=== PATIENT | female | born 1970 | race Caucasian/White ===

== ENCOUNTER 2020-08-25 16:26 | Outpatient (REF) | payer MEDICAID, SELFPAY | END 2020-08-25 16:27 | disposition home or self-care (01) | LOC: HO.LAB 16:26 | PROVIDERS: PCP Family Medicine; Visit Provider Internal Medicine | DX: Z20.828 Contact with and (suspected) exposure to other viral communicable diseases (principal) | CPT/HCPCS: C9803; U0003 ==

== ENCOUNTER 2022-04-02 22:08 | Emergency (ER) | payer MEDICAID, SELFPAY ==
--- NOTE | 2022-04-02 | ECG_ITS ---
Test Reason : cp Blood Pressure : / mmHG Vent. Rate : 077 BPM Atrial Rate : 077 BPM P-R Int : 180 ms QRS Dur : 078 ms QT Int : 388 ms P-R-T Axes : 075 089 062 degrees QTc Int : 439 ms Normal sinus rhythm Normal ECG When compared with ECG of 16-JUL-2017 00:54, No significant change was found Referred By: Generic ED Physician Electronically Signed By:Anderson Cordoba
[2022-04-02 23:07] VITALS: BP 146/81; PULSE 75; RESP 18; TEMP 36.9; O2SAT 98; BMI 24.5
[2022-04-02 23:12] LABS: MANUAL DIFF FLAG NO
[2022-04-02 23:13] LABS: Basophils Percent Auto 0.4 % (0-2); Eosinophils Absolute Auto 0.2 X10*3/uL (0.0-0.4); Eosinophils Percent Auto 2.7 % (0-4); Hematocrit 37.1 % (37.0-47.0); Hemoglobin 12.4 g/dl (12.0-16.0); Imm Gran Abs Auto 0.01 X10*3/uL (0.00-0.03); Imm Gran Pct Auto 0.1 % (0.0-0.4); Lymphocytes Absolute Auto 3.1 X10*3/uL (1.2-4.9); Lymphocytes Percent Auto 38.7 % (20-40); Mean Corpuscular HGB Conc 33.4 g/dl (31.0-35.0); Mean Corpuscular Hemoglobin 30.5 pg (27.0-33.0); Mean Corpuscular Volume 91.4 fL (80.0-98.0); Monocytes Absolute Auto 0.8 X10*3/uL (0.1-1.2); Monocytes Percent Auto 9.4 % (2-11); Neutrophils Absolute Auto 3.9 x10*3/uL (2.0-8.3); Neutrophils Percent Auto 48.7 % (45-73); Platelet Count 234 X10*3/uL (160-400); Red Blood Count 4.06 X10*6/uL (4.20-5.50); Red Cell Distribution Width 13.3 % (11.0-16.0); White Blood Count 8.1 X10*3/uL (4.8-10.8)
[2022-04-02 23:26] LABS: Alanine Aminotransferase 17 U/L (0-31); Albumin Level 4.3 g/dL (3.5-5.0); Alkaline Phosphatase 87 U/L (39-117); Anion Gap 10 (12-20); Aspartate Amino Transferase 17 U/L (5-31); Bilirubin Total 0.4 mg/dL (0.0-1.0); Blood Urea Nitrogen 18 mg/dL (9-16); Calcium 8.9 mg/dL (8.4-10.2); Carbon Dioxide 29 mmol/L (22-29); Chloride 106 mmol/L (96-108); Creatinine Clr Calc Pharmacy 67.7; Estimated Glomerular Filt Rate > 60; Glucose Random 104 mg/dL (60-115); Potassium 4.3 mmol/L (3.3-5.1); Sodium 141 mmol/L (135-145); Total Protein 6.7 g/dL (6.5-8.0)
[2022-04-02 23:32] LABS: Troponin-I High Sensitivity < 3.5 ng/L (<3.5-17.0)
[2022-04-03 01:27] VITALS: BP 130/77; PULSE 60; RESP 16; O2SAT 99
--- NOTE | 2022-04-03 01:44 | ED.CHESTPAIN ---
HPI - Chest Pain General Chief Complaint: Chest Pain Stated Complaint: Chest Pain, heart problems sent by pcp Time Seen by Provider: 04/03/22 01:44 Source: patient Mode of arrival: ambulatory Limitations: no limitations History of Present Illness HPI narrative: Patient had chest pain and left arm and shoulder pain. Started Saturday with chest tightness. Patient had arm numbness. She also feels a headache. Patient suffered from chest pain a year ago, she had a monitor and nothing major was found. Patient suffers from anxiety, felt hyper and stressed today. Patient has not worked secondary to having COVID, and going through a relationship break up. Then later tonight she felt like she could not concentrate. complaint: chest pain Onset (ago): day(s) Timing of current episode: episodic Pain location: substernal Pain radiation: left arm Quality: tightness Risk Factors Coronary artery disease risk factors: none Related Data Allergies Allergy/AdvReac Type Severity Reaction Status Date / Time gabapentin [GABAPENTIN] Allergy Unknown UNKNOWN Unverified 07/10/20 19:48 No Known Allergies Allergy Unknown Unverified 07/07/20 17:24 [No Known Allergies*] dogs, camels, horses, molds, Allergy Unknown Uncoded 05/24/20 00:00 g Review of Systems Constitutional: Constitutional: Reports no additional constitutional complaints Eyes: Eyes: Reports no additional eye complaints ENT: Denies dizziness Cardiovascular: Cardiovascular: Reports no additional cardiovascular complaints Respiratory: Respiratory: Reports as per HPI Gastrointestinal: Gastrointestinal: Reports no additional gastrointestinal complaints Genitourinary: Genitourinary: Reports no additional female genitourinary complaints Musculoskeletal: Musculoskeletal: Reports no additional musculoskeletal complaints Integumentary/Breasts: Skin/Breast: Denies rash Neurologic: Reports system reviewed and no additional complaints, except as documented, Denies dizziness and Denies Sensory deficit (Neuro) Psychiatric: Psychiatric: Denies anxiety PMFSH Social History Social History Advance Directives: No Advance Directives Information Provided: Yes Physical Exam Vital Signs: Vital Signs: Last Vital Signs Temp 98.4 F 04/02/22 23:07 Pulse 60 04/03/22 01:27 Resp 16 04/03/22 01:27 BP 130/77 04/03/22 01:27 Pulse Ox 99 04/03/22 01:27 O2 Del Method 04/03/22 01:27 BMI result Body Mass Index 24.5 Const: General: healthy appearing Nutritional Appearance: average body habitus Orientation/consciousness: oriented to person and patient oriented x3 Limitations: no limitations HEENT: Head: Yes normal to inspection Ears: external ears normal General nose exam: Normal external nose present Mouth: Normal oral and palatal mucosa present and oropharynx normal Throat: Yes posterior oropharynx normal Eyes: General: appearance normal, both eyes and all related structures Neck: Other: supple Neck: Yes normal visual inspection Chest: Chest palpation & inspection: normal inspection of the chest Resp: Auscultation: clear to auscultation bilaterally Cardio: Jugular venous distension: no JVD Rate: regular rate Rhythm: regular rhythm Heart sounds: S1 normal heart sound present and S2 normal heart sound present GI: Inspection: Yes normal to inspection Palpation (GI): Soft to palpation, nontender and No hepatosplenomegaly present Auscultation: normal bowel sounds : General: Yes no CVA tenderness Back/Spine/Pelvis: Back: no CVA tenderness Skin: General skin exam: no rashes or lesions noted Neuro: General: oriented to person and patient oriented x3 Cranial nerves: Yes CN's II-XII intact bilaterally Motor exam (neuro): 5/5 motor strength present throughout Sensory Exam: No Sensory deficit (Neuro) Extrem: General: Yes normal to inspection Psych: Other: pressured speech Course Reevaluation(s) Reevaluation #1: Patient with a history of chest pain which she has had in the past, she seems particularly anxious. EKG and troponin are negative, physical exam normal. impression is non cardiac chest pain Time: 01:57 [facility] - Chest Pain Lab Data Result diagrams: 04/02/22 23:05 04/02/22 23:05 Labs: Lab Results 04/02/22 04/02/22 04/02/22 Range/Units 23:05 23:05 23:05 WBC 8.1 (4.8-10.8) X10*3/uL RBC 4.06 L (4.20-5.50) X10*6/uL Hgb 12.4 (12.0-16.0) g/dl Hct 37.1 (37.0-47.0) % MCV 91.4 (80.0-98.0) fL MCH 30.5 (27.0-33.0) pg MCHC 33.4 (31.0-35.0) g/dl RDW 13.3 (11.0-16.0) % Plt Count 234 (160-400) X10*3/uL MPV 10.0 (9.4-12.3) fL Immature Gran % (Auto) 0.1 (0.0-0.4) % Neut % (Auto) 48.7 (45-73) % Lymph % (Auto) 38.7 (20-40) % [place] % (Auto) 9.4 (2-11) % Eos % (Auto) 2.7 (0-4) % Baso % (Auto) 0.4 (0-2) % Lymph # (Auto) 3.1 (1.2-4.9) X10*3/uL [place] # (Auto) 0.8 (0.1-1.2) X10*3/uL Eos # (Auto) 0.2 (0.0-0.4) X10*3/uL Baso # (Auto) 0.0 (0.0-0.2) X10*3/uL Abs Immat Gran (auto) 0.01 (0.00-0.03) X10*3/uL Absolute Neuts (auto) 3.9 (2.0-8.3) x10*3/uL Absolute Nucleated RBC 0.000 (0.0-0.012) X10*3/uL Nucleated RBC % (auto) 0.0 (0.0-0.2) /100WBC Sodium 141 (135-145) mmol/L Potassium 4.3 (3.3-5.1) mmol/L Chloride 106 (96-108) mmol/L Carbon Dioxide 29 (22-29) mmol/L Anion Gap 10 L (12-20) BUN 18 H (9-16) mg/dL Creatinine 0.81 (0.5-1.4) mg/dL Estim Creat Clear Calc 67.7 Estimated GFR > 60 Random Glucose 104 (60-115) mg/dL Calcium 8.9 (8.4-10.2) mg/dL Total Bilirubin 0.4 (0.0-1.0) mg/dL AST 17 (5-31) U/L ALT 17 (0-31) U/L Alkaline Phosphatase 87 (39-117) U/L Troponin I High Sens < 3.5 (<3.5-17.0) ng/L Total Protein 6.7 (6.5-8.0) g/dL Albumin 4.3 (3.5-5.0) g/dL ECG Data ECG #1: Attestation: I personally reviewed and interpreted this ECG as follows: Interpretation: normal sinus rate of 75, no st or twave changes Discharge Plan Discharge Clinical Impression: Atypical chest pain Patient Disposition: Home, Self-Care Instructions: Chest Pain (ED) Referrals: Physician,Unknown J [Primary Care Provider] - 1 week
[2022-04-03 02:16] VITALS: BP 142/90; PULSE 75; RESP 16; O2SAT 100
== END 2022-04-03 02:40 | disposition home or self-care (01) ==
PROVIDERS: Emergency Provider Emergency Medicine
DX: R07.89 Other chest pain (principal); R51.9 Headache, unspecified; F41.9 Anxiety disorder, unspecified
CPT/HCPCS: 36415; 80053; 84484; 85025; 93005; 99283

== ENCOUNTER 2022-12-12 07:43 | Emergency (ER) | payer MEDICAID, SELFPAY ==
--- NOTE | ~2022-12-12 | XR_ITS ---
EXAMINATION: XR CHEST CLINICAL INFORMATION: Chest pain COMPARISON: None TECHNIQUE: 2 views of the chest were obtained. FINDINGS: No significant abnormality is noted involving the heart, lungs, mediastinum, bony thorax or soft tissues. XR/XR chest 2V IMPRESSION: Unremarkable examination.
--- NOTE | ~2022-12-12 | CT_ITS ---
EXAMINATION: CT HEAD WITHOUT CONTRAST CLINICAL INFORMATION: Slurred speech COMPARISON: None TECHNIQUE: Contiguous axial imaging was performed from the skull base to vertex without intravenous administration of contrast. This CT examination was performed using dose optimization techniques as appropriate, variously including the following: *Automated exposure control *Adjustment of mA and/or kV according to patient size (this includes techniques or standardized protocols for targeted exams where dose is matched to indication/reason for exam; i.e. extremities or head) *Use of iterative reconstruction technique DLP: 579 mGy-cm FINDINGS: No intra or extra-axial fluid collection, hemorrhage, mass, or mass effect. Calvarium intact. CT/CT head/brain wo IV con IMPRESSION: No acute intracranial pathology.
[2022-12-12 07:48] VITALS: BP 157/69; PULSE 86; RESP 18; TEMP 36.2; O2SAT 98; BMI 24.5
--- NOTE | 2022-12-12 08:00 | ECG_ITS ---
Test Reason : chest pain Blood Pressure : / mmHG Vent. Rate : 085 BPM Atrial Rate : 085 BPM P-R Int : 172 ms QRS Dur : 078 ms QT Int : 372 ms P-R-T Axes : 068 091 072 degrees QTc Int : 442 ms Normal sinus rhythm Rightward axis Borderline ECG When compared with ECG of 02-APR-2022 22:19, No significant change was found Referred By: Satish Arreola Electronically Signed By:CHRISTINE CHRISTIE
--- NOTE | 2022-12-12 08:08 | MHC.EDTECH ---
EKG completed and signed by
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
[2022-12-12 08:38] LABS: MANUAL DIFF FLAG NO
--- NOTE | 2022-12-12 08:39 | PC.NURSE ---
Patient in CT will CTM
[2022-12-12 08:40] LABS: Basophils Percent Auto 0.7 % (0-2); Eosinophils Absolute Auto 0.2 X10*3/uL (0.0-0.4); Eosinophils Percent Auto 2.7 % (0-4); Hematocrit 38.9 % (37.0-47.0); Hemoglobin 13.2 g/dl (12.0-16.0); Imm Gran Abs Auto 0.02 X10*3/uL (0.00-0.03); Imm Gran Pct Auto 0.3 % (0.0-0.4); Lymphocytes Absolute Auto 1.8 X10*3/uL (1.2-4.9); Lymphocytes Percent Auto 30.6 % (20-40); Mean Corpuscular HGB Conc 33.9 g/dl (31.0-35.0); Mean Corpuscular Hemoglobin 30.5 pg (27.0-33.0); Mean Corpuscular Volume 89.8 fL (80.0-98.0); Mean Platelet Volume 9.9 fL (9.4-12.3); Monocytes Absolute Auto 0.6 X10*3/uL (0.1-1.2); Monocytes Percent Auto 10.6 % (2-11); Neutrophils Absolute Auto 3.3 x10*3/uL (2.0-8.3); Neutrophils Percent Auto 55.1 % (45-73); Platelet Count 267 X10*3/uL (160-400); Red Blood Count 4.33 X10*6/uL (4.20-5.50); White Blood Count 5.9 X10*3/uL (4.8-10.8)
[2022-12-12 08:59] LABS: Alanine Aminotransferase 21 U/L (0-31); Albumin Level 4.3 g/dL (3.5-5.0); Alkaline Phosphatase 69 U/L (39-117); Anion Gap 11 (12-20); Aspartate Amino Transferase 17 U/L (5-31); Bilirubin Total 0.3 mg/dL (0.0-1.0); Blood Urea Nitrogen 20 mg/dL (9-16); Carbon Dioxide 25 mmol/L (22-29); Chloride 107 mmol/L (96-108); Creatinine Clr Calc Pharmacy 76.4; Estimated Glomerular Filt Rate > 60; Glucose Random 88 mg/dL (60-115); Potassium 4.2 mmol/L (3.3-5.1); Sodium 139 mmol/L (135-145); Total Protein 6.5 g/dL (6.5-8.0)
[2022-12-12 09:00] LABS: B Type Natriuretic Peptide 16 pg/mL (<100)
[2022-12-12 09:02] LABS: Troponin-I High Sensitivity < 3.5 ng/L (<3.5-17.0)
[2022-12-12 09:10] LABS: Appearance Urine Clear; Color Urine Yellow; Glucose Urine UA Negative (Negative); Leukocyte Esterase Urine Negative (Negative); Nitrite Urine Negative (Negative); PH 5.5 (5.0-9.0); Urine Blood Negative (Negative); Urine Ketones Negative (Negative); Urine Protein Negative (Neg-Trace)
[2022-12-12 09:18] LABS: Influenza A PCR NEGATIVE (Negative); Influenza B PCR NEGATIVE (Negative); Resp Syncy Virus RNA Qual PCR NEGATIVE (Negative); SARS COV2 PCR INHOUSE NEGATIVE (Negative)
--- NOTE | 2022-12-12 09:18 | PC.NURSE ---
Patient AOx 4 complaint of ongoing chest pain has history of anxiety not taking any medications for her anxiety. LS clear neuros intact no facial droop or deviation of tongue no slurring of words grasp equal 5/5 no drift or ataxia noted otilio lCTM
[2022-12-12 09:26] LABS: HCG Quantitative 3 mIU/mL
[2022-12-12 10:56] LABS: CT PCR NOT DETECTED (Not Detect.); NG PCR NOT DETECTED (Not Detect.)
== END 2022-12-12 09:38 | disposition home or self-care (01) ==
PROVIDERS: Physician Assistant Medical; Emergency Provider Emergency Medicine; PCP Family Medicine
DX: R47.81 Slurred speech (principal); R07.89 Other chest pain; R06.02 Shortness of breath; Z20.822 Contact with and (suspected) exposure to COVID-19; Z20.828 Contact with and (suspected) exposure to other viral communicable diseases; Z87.820 Personal history of traumatic brain injury; Z79.899 Other long term (current) drug therapy
CPT/HCPCS: 0241U; 0353U; 70450; 71046; 80053; 81003; 83735; 83880; 84484; 84702; 85025; 93005; 99283; 99284

== ENCOUNTER → 2023-07-22 11:47 | Outpatient (BNVA) | payer OTHER, SELFPAY | PROVIDERS: PCP Family Medicine; Visit Provider Physician Assistant Medical | DX: S13.4XXA Sprain of ligaments of cervical spine, initial encounter (principal); W52.XXXA Crushed, pushed or stepped on by crowd or human stampede, initial encounter; R51.9 Headache, unspecified; R42 Dizziness and giddiness | CPT/HCPCS: 99203 ==

== ENCOUNTER → 2023-07-25 08:09 | Outpatient (BNVA) | payer OTHER, SELFPAY | PROVIDERS: PCP Family Medicine; Visit Provider Physician Assistant Medical | DX: S13.4XXA Sprain of ligaments of cervical spine, initial encounter (principal); W52.XXXA Crushed, pushed or stepped on by crowd or human stampede, initial encounter; R42 Dizziness and giddiness; F41.9 Anxiety disorder, unspecified; Z87.820 Personal history of traumatic brain injury | CPT/HCPCS: 99213 ==

== ENCOUNTER → 2023-08-01 11:15 | Outpatient (BNVA) | payer OTHER, SELFPAY | PROVIDERS: PCP Family Medicine; Visit Provider Physician Assistant Medical | DX: S13.4XXA Sprain of ligaments of cervical spine, initial encounter (principal); W52.XXXA Crushed, pushed or stepped on by crowd or human stampede, initial encounter; R42 Dizziness and giddiness; F41.9 Anxiety disorder, unspecified; R11.0 Nausea | CPT/HCPCS: 99213 ==

== ENCOUNTER → 2023-08-08 13:50 | Outpatient (BNVA) | payer OTHER, SELFPAY | PROVIDERS: PCP Family Medicine; Visit Provider Physician Assistant | DX: S13.4XXA Sprain of ligaments of cervical spine, initial encounter (principal); W52.XXXA Crushed, pushed or stepped on by crowd or human stampede, initial encounter; M54.2 Cervicalgia; R42 Dizziness and giddiness; R11.0 Nausea; F43.10 Post-traumatic stress disorder, unspecified | CPT/HCPCS: 99213 ==

== ENCOUNTER → 2023-08-15 13:52 | Outpatient (BNVA) | payer OTHER, SELFPAY | PROVIDERS: PCP Family Medicine; Visit Provider Physician Assistant Medical | DX: S13.4XXA Sprain of ligaments of cervical spine, initial encounter (principal); W03.XXXA Other fall on same level due to collision with another person, initial encounter; R51.9 Headache, unspecified; M54.2 Cervicalgia; R42 Dizziness and giddiness; R11.0 Nausea; F41.9 Anxiety disorder, unspecified | CPT/HCPCS: 99213 ==

== ENCOUNTER 2023-08-21 15:00 | Outpatient (RCR) | payer OTHER, MEDICAID, SELFPAY ==
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
== END 2023-10-02 10:26 | disposition home or self-care (01) ==
LOC: HO.OT 15:00
PROVIDERS: PCP Family Medicine; Visit Provider Physician Assistant Medical
DX: S06.9XAD Unspecified intracranial injury with loss of consciousness status unknown, subsequent encounter (principal); R42 Dizziness and giddiness; M54.2 Cervicalgia
CPT/HCPCS: 97112; 97165; 97530

== ENCOUNTER → 2023-08-26 14:05 | Outpatient (BNVA) | payer OTHER, SELFPAY | PROVIDERS: PCP Family Medicine; Visit Provider Physician Assistant Medical | DX: S13.4XXD Sprain of ligaments of cervical spine, subsequent encounter (principal); W50.0XXD Accidental hit or strike by another person, subsequent encounter; R51.9 Headache, unspecified; M54.2 Cervicalgia; R42 Dizziness and giddiness | CPT/HCPCS: 99213 ==

== ENCOUNTER 2023-09-03 14:00 | Outpatient (RCR) | payer OTHER, MEDICAID, SELFPAY ==
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
--- NOTE | 2023-11-20 08:45 | MHC.PT.DC ---
[facility] [place] Office [place] Office [place] Office [address] Ness Elaine [address] [phone] F: [phone] F: [phone] F: [phone] F: [phone] Physical Therapy Discharge Report Diagnosis: Cervicalgia Date of Surgery: Date of Evaluation: 08/22/23 Date of Discharge: 11/20/23 Treatments to Date: 3 Cancellations to Date: No Shows to Date: Discharge Status: Patient Elected to Stop Discharge Summary: . Electronically signed by: Chadd Chavez PT. Please sign and return to therapist. Thank you for your referral.
== END 2023-11-20 08:46 | disposition home or self-care (01) ==
LOC: HO.PT 14:00
PROVIDERS: PCP Family Medicine; Visit Provider Physician Assistant Medical
DX: M54.2 Cervicalgia (principal)
CPT/HCPCS: 97110; 97140; 97161; 97162

== ENCOUNTER → 2023-09-24 13:44 | Outpatient (BNVA) | payer OTHER, SELFPAY | PROVIDERS: PCP Family Medicine; Visit Provider Physician Assistant Medical | DX: S13.4XXD Sprain of ligaments of cervical spine, subsequent encounter (principal); W52.XXXD Crushed, pushed or stepped on by crowd or human stampede, subsequent encounter; R51.9 Headache, unspecified; M54.2 Cervicalgia; R42 Dizziness and giddiness; F43.10 Post-traumatic stress disorder, unspecified; F41.9 Anxiety disorder, unspecified | CPT/HCPCS: 99215 ==

== ENCOUNTER → 2023-10-08 14:18 | Outpatient (BNVA) | payer OTHER, SELFPAY | PROVIDERS: PCP Family Medicine; Visit Provider Physician Assistant | DX: S13.4XXD Sprain of ligaments of cervical spine, subsequent encounter (principal); W52.XXXD Crushed, pushed or stepped on by crowd or human stampede, subsequent encounter; R51.9 Headache, unspecified; M54.2 Cervicalgia; F43.10 Post-traumatic stress disorder, unspecified | CPT/HCPCS: 99214 ==

== ENCOUNTER → 2023-10-29 15:33 | Outpatient (BNVA) | payer OTHER, SELFPAY | PROVIDERS: PCP Family Medicine; Visit Provider Physician Assistant | DX: S13.4XXD Sprain of ligaments of cervical spine, subsequent encounter (principal); W52.XXXD Crushed, pushed or stepped on by crowd or human stampede, subsequent encounter; R51.9 Headache, unspecified; M54.2 Cervicalgia; F43.10 Post-traumatic stress disorder, unspecified; F41.9 Anxiety disorder, unspecified | CPT/HCPCS: 99215 ==

== ENCOUNTER → 2023-11-27 10:13 | Outpatient (BNVA) | payer OTHER, SELFPAY | PROVIDERS: PCP Family Medicine; Visit Provider Physician Assistant | DX: S13.4XXD Sprain of ligaments of cervical spine, subsequent encounter (principal); W52.XXXD Crushed, pushed or stepped on by crowd or human stampede, subsequent encounter; R51.9 Headache, unspecified; M54.2 Cervicalgia; F43.10 Post-traumatic stress disorder, unspecified; F41.9 Anxiety disorder, unspecified | CPT/HCPCS: 99215 ==

== ENCOUNTER 2023-12-06 13:40 | Outpatient (AMB) | payer OTHER, SELFPAY ==
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
[2023-12-06 13:44] VITALS: BP 124/82; PULSE 93; O2SAT 98; BMI 26.6
== END 2023-12-06 15:17 | disposition home or self-care (01) ==
PROVIDERS: PCP Family Medicine; Visit Provider Nurse Practitioner Family
DX: G44.309 Post-traumatic headache, unspecified, not intractable (principal); F07.81 Postconcussional syndrome; F39 Unspecified mood [affective] disorder; R41.89 Other symptoms and signs involving cognitive functions and awareness
CPT/HCPCS: 99204

== ENCOUNTER → 2023-12-06 13:40 | Outpatient (BNVA) | payer OTHER, SELFPAY | PROVIDERS: PCP Family Medicine; Visit Provider Nurse Practitioner Family | DX: F07.81 Postconcussional syndrome (principal); F09 Unspecified mental disorder due to known physiological condition; G43.009 Migraine without aura, not intractable, without status migrainosus; F39 Unspecified mood [affective] disorder | CPT/HCPCS: 99202 ==

== ENCOUNTER → 2024-01-02 10:13 | Outpatient (BNVA) | payer OTHER, SELFPAY | PROVIDERS: PCP Family Medicine; Visit Provider Physician Assistant | DX: S13.4XXD Sprain of ligaments of cervical spine, subsequent encounter (principal); W52.XXXD Crushed, pushed or stepped on by crowd or human stampede, subsequent encounter; R51.9 Headache, unspecified; M54.2 Cervicalgia; F43.10 Post-traumatic stress disorder, unspecified; F41.9 Anxiety disorder, unspecified | CPT/HCPCS: 99214 ==

== ENCOUNTER 2024-01-14 15:19 | Emergency (ER) | payer MEDICAID, SELFPAY ==
--- NOTE | ~2024-01-14 | CT_ITS ---
EXAMINATION: CT HEAD WITHOUT CONTRAST (STROKE PROTOCOL) CLINICAL INFORMATION: Stroke protocol. Right facial droop, numbness and dizziness. COMPARISON: Previous head CT November 2022 TECHNIQUE: Contiguous axial imaging was performed from the skull base to vertex without intravenous administration of contrast. This CT examination was performed using dose optimization techniques as appropriate, variously including the following: *Automated exposure control *Adjustment of mA and/or kV according to patient size (this includes techniques or standardized protocols for targeted exams where dose is matched to indication/reason for exam; i.e. extremities or head) *Use of iterative reconstruction technique DLP: 605 mGy-cm FINDINGS: There is no evidence for an extra-axial collection. There is no evidence for intra-or extra-axial hemorrhage. The ventricles and extra-axial CSF spaces are appropriate. Andrade-white matter differentiation is normal. No mass, mass effect or infarct is seen. Review of bone windows is normal. Visualized paranasal sinuses, mastoid air cells and middle ears are clear. CT/CT head for stroke IMPRESSION: Unremarkable exam. This critical result was discussed with Dr Valdez at 1601 hours on 01/14/2024. It was ascertained that the content and urgency of the report was understood at the time of direct communication.
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
--- NOTE | 2024-01-14 15:27 | ECG_ITS ---
Test Reason : ?STROKE Blood Pressure : / mmHG Vent. Rate : 074 BPM Atrial Rate : 074 BPM P-R Int : 172 ms QRS Dur : 082 ms QT Int : 396 ms P-R-T Axes : 063 085 043 degrees QTc Int : 439 ms Normal sinus rhythm Normal ECG When compared with ECG of 12-DEC-2022 08:00, No significant change was found Referred By: Shemar Valdez Electronically Signed By:Anderson Cordoba
[2024-01-14 15:30] VITALS: BP 136/74; BP 150/92; PULSE 75; PULSE 80; RESP 18; TEMP 36.6; O2SAT 96; O2SAT 99; BMI 27.1
[2024-01-14 15:36] LABS: Glucose, Whole Blood 98 mg/dL (60-115)
[2024-01-14 15:41] LABS: Prothrombin Time Whole Bld POC 11.3 sec (11.1-13.5); ~PT, ~INR - Anti Coag Clinic 0.9 (0.9-1.1)
--- NOTE | 2024-01-14 16:00 | PC.NURSE ---
pt alfred from home. EMS called a stroke alert. dr. benson cancelled stroke alert upon ED arrival. per EMS - LKW 1330. pt presents w/ sudden onset dizziness, right sided facial droop and right sided facial numbness. upon ED arrival - no facial droop noted. face symmetrical. no slur in speech noted. equal strength noted bilaterally. pt able to follow commands w/o difficulty. PERRLA. neuros intact. no sob/wob noted. respirations even and unlabored. pt passed nursing swallow eval w/o difficulty. pt waiting for CT results at this time. pt resting comfortably in stretcher watching tv on phone in no apparent distress at this time. plan of care ongoing. call rayo placed within reach.
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
[2024-01-14 16:15] LABS: MANUAL DIFF FLAG NO
[2024-01-14 16:20] LABS: Basophils Absolute Auto 0.1 X10*3/uL (0.0-0.2); Basophils Percent Auto 0.8 % (0-2); Eosinophils Absolute Auto 0.3 X10*3/uL (0.0-0.4); Eosinophils Percent Auto 3.6 % (0-4); Hematocrit 41.3 % (37.0-47.0); Hemoglobin 13.9 g/dl (12.0-16.0); Imm Gran Abs Auto 0.03 X10*3/uL (0.00-0.03); Imm Gran Pct Auto 0.3 % (0.0-0.4); Lymphocytes Absolute Auto 2.7 X10*3/uL (1.2-4.9); Lymphocytes Percent Auto 30.2 % (20-40); Mean Corpuscular HGB Conc 33.7 g/dl (31.0-35.0); Mean Corpuscular Hemoglobin 30.6 pg (27.0-33.0); Mean Platelet Volume 9.6 fL (9.4-12.3); Monocytes Absolute Auto 0.8 X10*3/uL (0.1-1.2); Monocytes Percent Auto 8.7 % (2-11); Neutrophils Percent Auto 56.4 % (45-73); Platelet Count 271 X10*3/uL (160-400); Red Blood Count 4.54 X10*6/uL (4.20-5.50); Red Cell Distribution Width 13.1 % (11.0-16.0); White Blood Count 8.8 X10*3/uL (4.8-10.8)
[2024-01-14 16:25] LABS: Prothrombin Time 11.6 SEC (11.1-13.3)
[2024-01-14 16:28] LABS: Partial Thromboplastin Time 31.6 SEC (26.0-36.8)
[2024-01-14 16:39] LABS: Alanine Aminotransferase 32 U/L (0-31); Albumin Level 4.6 g/dL (3.5-5.0); Alkaline Phosphatase 105 U/L (39-117); Anion Gap 13 (12-20); Aspartate Amino Transferase 24 U/L (5-31); Bilirubin Direct 0.1 mg/dL (0.0-0.5); Bilirubin Total 0.3 mg/dL (0.0-1.0); Blood Urea Nitrogen 12 mg/dL (9-16); Calcium 9.5 mg/dL (8.4-10.2); Carbon Dioxide 28 mmol/L (22-29); Chloride 105 mmol/L (96-108); Estimated Glomerular Filt Rate > 60; Glucose Random 89 mg/dL (60-115); Magnesium 2.4 mg/dL (1.6-2.6); Potassium 3.8 mmol/L (3.3-5.1); Sodium 142 mmol/L (135-145); Total Protein 7.7 g/dL (6.5-8.0)
[2024-01-14 16:44] LABS: Troponin-I High Sensitivity < 2.7 ng/L (<3.5-17.0)
[2024-01-14 17:02] LABS: Stroke Lab Use COMPLETE
[2024-01-14 18:14] VITALS: BP 151/87; PULSE 83; RESP 16; TEMP 36.9; O2SAT 97
--- NOTE | 2024-01-14 18:20 | PC.NURSE ---
vss and up up to date at this time. nsr on the cardiac cath technologist. neuros remain intact. respirations remain even and unlabored. plan of care ongoing. call rayo placed within reach.
[2024-01-14 20:42] VITALS: BP 127/92; PULSE 87; RESP 18; TEMP 36.7; O2SAT 98
--- NOTE | 2024-01-14 20:43 | PC.NURSE ---
Pt aox4. No apparent distress noted. VSS. Denies SI/HI. Discharge instructions reviewed wtih pt. Pt verbalizes understanding.
[2024-01-14 20:44] VITALS: BP 127/92; PULSE 87; RESP 18; TEMP 36.7; O2SAT 98
[2024-01-14 20:52] LABS: Amphetamine Screen Urine Not Detected (Not Detect); Barbiturates, Urine Not Detected (Not Detect); Benzodiazepines Screen Urine Not Detected (Not Detect); Cannabinoid Screen Urine Not Detected (Not Detect); Cocaine Screen Urine Not Detected (Not Detect); Fentanyl, urine Not Detected (Not Detect); Opiate Screen Urine Not Detected (Not Detect); Phencyclidine Screen Urine Not Detected (Not Detect)
== END 2024-01-14 20:46 | disposition home or self-care (01) ==
PROVIDERS: Emergency Provider Emergency Medicine Emergency Medical Services; PCP Family Medicine
DX: F33.1 Major depressive disorder, recurrent, moderate (principal); R45.851 Suicidal ideations; R20.2 Paresthesia of skin; R42 Dizziness and giddiness; R29.810 Facial weakness; F41.1 Generalized anxiety disorder; F43.0 Acute stress reaction; Z79.899 Other long term (current) drug therapy
CPT/HCPCS: 36415; 70450; 80048; 80076; 80307; 82550; 82947; 83735; 84484; 85025; 85610; 85730; 93005; 99285

== ENCOUNTER → 2024-01-14 15:27 | Outpatient (BNV) | payer MEDICAID, SELFPAY | PROVIDERS: Emergency Provider Emergency Medicine Emergency Medical Services; PCP Family Medicine; Visit Provider Internal Medicine Cardiovascular Disease | DX: R42 Dizziness and giddiness (principal) | CPT/HCPCS: 93010 ==

== ENCOUNTER → 2024-01-22 11:26 | Outpatient (BNVA) | payer OTHER, SELFPAY | PROVIDERS: PCP Family Medicine; Visit Provider Physician Assistant | DX: S13.4XXD Sprain of ligaments of cervical spine, subsequent encounter (principal); W52.XXXD Crushed, pushed or stepped on by crowd or human stampede, subsequent encounter; R51.9 Headache, unspecified; M54.2 Cervicalgia; F43.10 Post-traumatic stress disorder, unspecified; F41.9 Anxiety disorder, unspecified | CPT/HCPCS: 99214 ==

== ENCOUNTER 2024-01-29 07:39 | Outpatient (AMB) | payer OTHER, SELFPAY ==
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
[2024-01-29 08:09] VITALS: BP 152/86; PULSE 94; RESP 16; O2SAT 100; BMI 27.1
== END 2024-01-29 09:06 | disposition home or self-care (01) ==
PROVIDERS: PCP Family Medicine; Visit Provider Nurse Practitioner Family
DX: G44.309 Post-traumatic headache, unspecified, not intractable (principal); F07.81 Postconcussional syndrome; F39 Unspecified mood [affective] disorder
CPT/HCPCS: 99214

== ENCOUNTER → 2024-01-29 07:39 | Outpatient (BNVA) | payer OTHER, SELFPAY | PROVIDERS: PCP Family Medicine; Visit Provider Nurse Practitioner Family | DX: F07.81 Postconcussional syndrome (principal); F09 Unspecified mental disorder due to known physiological condition; G43.009 Migraine without aura, not intractable, without status migrainosus; F39 Unspecified mood [affective] disorder | CPT/HCPCS: 99212 ==

== ENCOUNTER → 2024-02-26 13:49 | Outpatient (BNVA) | payer OTHER, SELFPAY | PROVIDERS: PCP Family Medicine; Visit Provider Physician Assistant | DX: S13.4XXD Sprain of ligaments of cervical spine, subsequent encounter (principal); M54.2 Cervicalgia; R51.9 Headache, unspecified; F43.10 Post-traumatic stress disorder, unspecified; F41.9 Anxiety disorder, unspecified | CPT/HCPCS: 99213 ==

== ENCOUNTER 2024-02-26 16:45 | Outpatient (REF) | payer OTHER, SELFPAY ==
--- NOTE | ~2024-02-26 | MR_ITS ---
EXAMINATION: MR BRAIN WITH AND WITHOUT CONTRAST CLINICAL INFORMATION: Possible strokelike symptoms, mild right facial droop, slurred speech, postconcussive syndrome COMPARISON: CT head 01/14/2024 TECHNIQUE: MRI of the brain was obtained using routine sequences before and following administration of intravenous contrast. A total of 7 mL of Gadavist was administered intravenously. FINDINGS: No evidence of acute or chronic infarcts. The GRE sequence is without susceptibility artifact to suggest acute or chronic blood products. No extra-axial fluid collection. The ventricles and sulci are normal in size and configuration without significant volume loss or hydrocephalus. Few scattered T2 FLAIR hyperintense foci in the subcortical and periventricular white matter, nonspecific but presumably mild chronic microangiopathy. No abnormal intraparenchymal or leptomeningeal enhancement. No significant mass effect or herniation pattern. Small right hippocampal sulcus remnant cyst. The intracranial dural venous sinus and arterial flow voids are preserved. Normal appearance of the midline structures. The orbits are grossly unremarkable. Asymmetric enhancement effacing the right middle meatus (image 28, series 10), partially imaged on CT from 01/14/2024 without corresponding opacification in this region, presumably related to mucosal disease however could be further diagnostically assessed with maxillofacial CT. Mucosal thickening in the maxillary sinus alveolar recesses with proteinaceous retention cyst on the left. No mastoid effusion. No suspicious osseous lesion. Partially imaged cervical spondylosis with severe hypertrophic facet arthropathy. MR/MR head/brain wo/w con IMPRESSION: 1. No acute intracranial abnormality. 2. No evidence of acute or chronic infarcts. Minimal scattered nonspecific white matter disease, presumably mild chronic microangiopathy. 3. Asymmetric enhancement effacing the right middle meatus (image 28, series 10), partially imaged on CT from 01/14/2024 without corresponding opacification in this region, presumably related to mucosal disease however could be further diagnostically assessed with maxillofacial CT.
[2024-02-26] MEDS: gadobutroL 7.5 ML VIAL IVPUSH (18:31)
== END 2024-02-26 16:46 | disposition home or self-care (01) ==
LOC: HO.MRI 16:45
PROVIDERS: PCP Family Medicine; Visit Provider Nurse Practitioner Family
DX: R42 Dizziness and giddiness (principal); R20.2 Paresthesia of skin; F09 Unspecified mental disorder due to known physiological condition; R20.0 Anesthesia of skin
CPT/HCPCS: 70553; A9585

== ENCOUNTER → 2024-03-25 13:37 | Outpatient (BNVA) | payer OTHER, SELFPAY | PROVIDERS: PCP Family Medicine; Visit Provider Physician Assistant | DX: S13.4XXD Sprain of ligaments of cervical spine, subsequent encounter (principal); W52.XXXD Crushed, pushed or stepped on by crowd or human stampede, subsequent encounter; R51.9 Headache, unspecified; M54.2 Cervicalgia; F43.10 Post-traumatic stress disorder, unspecified; F41.9 Anxiety disorder, unspecified | CPT/HCPCS: 99214 ==

== ENCOUNTER 2024-04-20 07:38 | Outpatient (AMB) | payer OTHER, SELFPAY ==
[2024-04-20 07:41] VITALS: BP 138/78; PULSE 98; O2SAT 88; BMI 25.2
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
== END 2024-04-20 08:19 | disposition home or self-care (01) ==
PROVIDERS: PCP Family Medicine; Visit Provider Nurse Practitioner Family
DX: F07.81 Postconcussional syndrome (principal); R41.89 Other symptoms and signs involving cognitive functions and awareness; R42 Dizziness and giddiness
CPT/HCPCS: 99214

== ENCOUNTER → 2024-04-20 07:38 | Outpatient (BNVA) | payer OTHER, SELFPAY | PROVIDERS: PCP Family Medicine; Visit Provider Nurse Practitioner Family | DX: F07.81 Postconcussional syndrome (principal); F09 Unspecified mental disorder due to known physiological condition; R42 Dizziness and giddiness | CPT/HCPCS: 99212 ==

== ENCOUNTER → 2024-04-22 15:46 | Outpatient (BNVA) | payer OTHER, SELFPAY | PROVIDERS: PCP Family Medicine; Visit Provider Physician Assistant | DX: S13.4XXD Sprain of ligaments of cervical spine, subsequent encounter (principal); W52.XXXD Crushed, pushed or stepped on by crowd or human stampede, subsequent encounter; M54.2 Cervicalgia; F43.10 Post-traumatic stress disorder, unspecified; F41.9 Anxiety disorder, unspecified | CPT/HCPCS: 99214 ==

== ENCOUNTER 2024-05-22 09:00 | Outpatient (RCR) | payer OTHER, SELFPAY ==
[2024-05-07 11:55] VITALS: BP 134/82; PULSE 72; TEMP 37.2
[2024-05-07 11:58] VITALS: BMI 26.0
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
--- NOTE | 2024-05-07 16:01 | HO.PHP ---
Pt's case has been opened and reviewed in treatment team.
--- NOTE | 2024-05-08 23:59 | P.HPPSP_ITS ---
HPI Date of Service: 05/08/24 Chief Complaint: PTSD,depression,GAUDENCIO Sources of Information: patient interviewed, chart reviewed and crisis/core team assessment reviewed HPI Narrative: Patient is a 54 yo female with history of anxiety, depression, bipolar depression, ptsd, hoarding behaviors, multiple concussions/TBI, who was referred by her PCP for mood swings, depression, SI over the past year in the context of numerous stressors and cognitive and organizational struggles related to TBI. There is a history of Bipolar Disorder which patient denied, saying that she did not meet criteria per previous assessments. She struggles with presenting an accurate history of psychiatric symptoms and treatment, noting that she has a history of TBI and that she has been working with her psych provider Dr. Prosper Sr for many years he knows me well, knows my history . She says she has been on many medications in the past including undergoing EMDR which was not felt to be helpful. She says she is not inclined to make any changes to her medication regime. She says she is here at the program for therapeutic support and is hoping to obtain an ASD diagnosis. She recently had her Wellbutrin SR dose increased from 200 mg to 300 mg which she found helpful. She has a history of HBOT treatment, went through a few consistent rounds many years ago and experienced considerable benefit, even to the point she had invested in her own HBOT chamber for her home, however she admits she is not good about getting herself in there, due to organization struggles and time management. She prefers undergoing HBOT treatment with Dr. Sr and has undergone 2 treatments in the past 1-2 weeks. She denies any alcohol or substance use. She was only minimally cooperative with interview, required redirection multiple times, and ultimately says she was tired and asked if we could talk more next week. She adds that it is important that she sets limits with providers. She denies any SI, HI, AH, VH. She denies needing any refills at this time. Per review of initial assessment, she lives at home with 15 yo son. Her 17 yo daughter recently moved out and has been living with her father. She reports that her children struggle with MH issues. She denies any SI, states a history of SI many years (>10 yrs) ago. [facility] Medical History (Updated 05/11/24 @ 06:12 by Sydni Mcintosh MD) Mood disorder Post concussion syndrome Migraine TBI (traumatic brain injury) Mild asthma Menopause Palpitations Melanoma Crohn's disease Subclinical hypothyroidism Anemia Diagnostics Vital Signs (24Hr): BMI result Body Mass Index 26.0 Meds/Allergies Meds Home Medications ?Medication ?Instructions ?Recorded ?Confirmed ?Type progesterone micronized 100 mg 100 mg PO QAM 12/06/23 05/07/24 History capsule amantadine HCl 100 mg tablet 50 - 100 mg PO BID 05/07/24 05/07/24 History bupropion HCl 300 mg 24 hr tablet, 300 mg PO QAM 05/07/24 05/07/24 History extended release estradiol 0.05 mg/24 hr semiweekly 1 patch topical 2XW 05/07/24 05/07/24 History transdermal patch valacyclovir 500 mg tablet 500 mg PO DAILY PRN Outbreak 05/07/24 05/07/24 History Ventolin HFA 05/22/24 History loratadine 10 mg tablet 10 mg PO DAILY PRN Allergic 05/22/24 05/22/24 History Symptoms Allergies Allergies Allergy/AdvReac Type Severity Reaction Status Date / Time gabapentin [GABAPENTIN] Allergy Unknown UNKNOWN Verified 04/20/24 07:44 dogs, camels, horses, molds, Allergy Unknown Difficulty Uncoded 04/20/24 07:44 g Breathing Mental Status Exam Mental Status Exam Narrative: Alert, oriented, in no acute distress. Calm, semi-cooperative, talkative but defensive when redirected. No psychomotor agitation or neurovegetative retardation. Eye contact maintained. Mood variable, anxious, affect anxious, elevated. Speech normal. Thought process scattered, circuitous, but coherent, no FOI or SUSANNE. Thought content related to stressors, executive dysfunction, feeling overwhelmed, some transient helplessness, denies hopelessness or SI, intention, urge or plan. Denies any aggressive or HI. No paranoia or delusional content elicited. No evidence of psychosis. Insight and judgment fair but adequate. Assessment & Plan Assessment & Plan (1) Mood disorder: Status: Acute Code(s): F39 - Unspecified mood [affective] disorder (2) PTSD (post-traumatic stress disorder): Status: Acute Code(s): F43.10 - Post-traumatic stress disorder, unspecified (3) GAUDENCIO (generalized anxiety disorder): Status: Acute Code(s): F41.1 - Generalized anxiety disorder Plan Admit to [facility] VS reviewed: abrefile, BP 134/82;?72 bpm continue other regular medications? Routine lab work ordered EKG, routine for baseline QTc for medication considerations UDS as indicated MassPat reviewed Continue to monitor as per protocol Patient educated on: diagnosis and medication risk/benefits Informed Consent: understands Reason for continued partial hosp. stay Substantial Risk for: inability to function and med/psych decompensation Certification I certify that partial hospital treatment is medically necessary due to the symptoms and problems resulting from the patient's mental illness and the failure to treat the patient at the partial hospital level of care would likely result in the patient requiring inpatient psychiatric care which could not be prevented at a less intensive level of care. Time Spent With Patient Time: Total time managing care of this patient today __60__ minutes.
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
--- NOTE | 2024-05-22 23:45 | P.PNPSP_ITS ---
Subjective Subjective Date of Service: 05/22/24 Reason For Visit: PTSD,depression,GAUDENCIO Interim History: Patient seen for follow-up, anticipating discharge at the end of program today.? Doing fine . I suggested she could explore possible benefits of treatment with memantine or even guanfacine with her outpatient provider. She has an upcoming appointment with Dr. Sr on 06/11. Reports no acute issues or concerns. Medication compliant, medications well- tolerated. Denies any adverse effects.?She feels she benefitted from group therapy. Appreciated the supportive environment. Mood is stable.? Denies any hopelessness or SI. Denies thoughts of harming self or others at this time. De nies any aggressive ideation or HI. Denies any paranoia or AH or VH. Sleep, appetite, energy stable. Medication Compliance: Yes Side effects from medications: No Attending Groups: Yes Review of Systems Acute medical concerns: No Mental Status Exam Mental Status Exam Narrative: Alert, oriented, in no acute distress. Calm, cooperative, talkative. Mood stable, affect appropriate. Speech normal. Thought process linear, coherent, still scattered and circumstantial, but more goal-directed. Thought content related to stressors, future-oriented, denies any helplessness, hopelessness or SI.? No aggressive ideation or HI. No paranoia or delusional content elicited. No evidence of psychosis. Insight and judgment fair-good. Diagnostics Vital Signs (24Hr): BMI result Body Mass Index 26.0 Assessment & Plan Assessment & Plan (1) GAUDENCIO (generalized anxiety disorder): Status: Acute Code(s): F41.1 - Generalized anxiety disorder (2) Mood disorder: Status: Acute Code(s): F39 - Unspecified mood [affective] disorder (3) PTSD (post-traumatic stress disorder): Status: Acute Code(s): F43.10 - Post-traumatic stress disorder, unspecified (4) Mild cognitive impairment with memory loss: Status: Acute Code(s): G31.84 - Mild cognitive impairment of uncertain or unknown etiology (5) Personal history of traumatic brain injury: Status: Acute Code(s): Z87.820 - Personal history of traumatic brain injury Plan Discharge from [facility] Continue regular medications No refills requested Will defer further medication management to outpatient provider *Safety plan reviewed *Discharge diagnoses, treatment course, discharge plan have been reviewed with patient (including medication regime, medication management, potential side effects) as well as treatment rationale were also revisited *Discharge paperwork signed and given to patient, copy sent for scanning to chart ? Patient educated on: diagnosis and medication risk/benefits Informed Consent: understands Reason for contiued partial hosp. stay Substantial Risk for: stable for discharge Certification I certify that partial hospital treatment is medically necessary due to the symptoms and problems resulting from the patient's mental illness and the failure to treat the patient at the partial hospital level of care would likely result in the patient requiring inpatient psychiatric care which could not be prevented at a less intensive level of care. Total time managing care of this patient today __30__ minutes. Discharge Plan Discharge Attending provider: Sydni Mcintosh Medications: Continued amantadine HCl 100 mg Tablet 50 - 100 mg PO BID Rx Instructions: Take 1/2 to 1 tab BID estradiol 0.05 mg/24 hr patch semiweekly 1 patch topical 2XW Rx Instructions: Last Filled 01/15/24 bupropion HCl 300 mg Tablet Extended Release 24 Hr 300 mg PO QAM Rx Instructions: Returned to stock . Patient did not brain picker. Stated she sometimes misses doses but mostly takes as prescribed. valacyclovir 500 mg tablet 500 mg PO DAILY PRN (Reason: Outbreak) loratadine 10 mg Tablet 10 mg PO DAILY PRN (Reason: Allergic Symptoms) Ventolin HFA progesterone micronized 100 mg capsule 100 mg PO QAM Rx Instructions: off 7 days; repeat cycle. Discontinued doxazosin 1 mg Tablet 1 mg PO BEDTIME Rx Instructions: Patient never picked up prescription. Patient stated she does not take. cetirizine 10 mg Tablet 10 mg PO DAILY Rx Instructions: Patient did not brain picker, returned to stock. No Action Ubrelvy 100 mg tablet 50 - 100 mg PO ONCE PRN (Reason: migraine headache) 30 Days Qty: 16 3RF Rx Instructions: take at onset of migraine, may repeat in 2hrs (may take w/ Ibuprofen) magnesium oxide 400 mg (241.3 mg magnesium) tablet 400 mg PO BEDTIME 30 Days Qty: 30 6RF Rx Instructions: may hold for loose stools. Last Filled . Patient not taking. Stand Alone Forms: Patient Portal Discharge page Patient Education: Generalized Anxiety Disorder (ED) Print Language: Bhutanese
== END 2024-05-22 23:59 | disposition home or self-care (01) ==
LOC: HO.PHPA 09:00
PROVIDERS: Visit Provider Psychiatry & Neurology Psychiatry
DX: F39 Unspecified mood [affective] disorder (principal); F43.10 Post-traumatic stress disorder, unspecified; F41.1 Generalized anxiety disorder; G31.84 Mild cognitive impairment of uncertain or unknown etiology; Z87.820 Personal history of traumatic brain injury; Z79.899 Other long term (current) drug therapy
CPT/HCPCS: 90791; 90853

== ENCOUNTER → 2024-06-03 09:07 | Outpatient (BNVA) | payer OTHER, SELFPAY | PROVIDERS: Visit Provider Physician Assistant | DX: S13.4XXD Sprain of ligaments of cervical spine, subsequent encounter (principal); V00-Y99 External causes of morbidity; R51.9 Headache, unspecified; M54.2 Cervicalgia; F43.10 Post-traumatic stress disorder, unspecified; F41.9 Anxiety disorder, unspecified | CPT/HCPCS: 99214 ==

== ENCOUNTER → 2024-07-09 11:49 | Outpatient (BNVA) | payer OTHER, SELFPAY | PROVIDERS: Visit Provider Physician Assistant | DX: S13.4XXD Sprain of ligaments of cervical spine, subsequent encounter (principal); W52.XXXD Crushed, pushed or stepped on by crowd or human stampede, subsequent encounter; R51.9 Headache, unspecified; M54.2 Cervicalgia; F43.10 Post-traumatic stress disorder, unspecified; F41.9 Anxiety disorder, unspecified | CPT/HCPCS: 99214 ==

== ENCOUNTER 2024-11-11 08:59 | Outpatient (AMB) | payer MEDICAID, SELFPAY ==
[2024-11-11 09:02] VITALS: BMI 25.2
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
== END 2024-11-11 10:41 | disposition home or self-care (01) ==
PROVIDERS: PCP Family Medicine; Visit Provider Nurse Practitioner Family
DX: G31.84 Mild cognitive impairment of uncertain or unknown etiology (principal); G43.009 Migraine without aura, not intractable, without status migrainosus; R42 Dizziness and giddiness; F07.81 Postconcussional syndrome
CPT/HCPCS: 99214

== ENCOUNTER → 2024-11-11 08:59 | Outpatient (BNVA) | payer OTHER, SELFPAY | PROVIDERS: PCP Family Medicine; Visit Provider Nurse Practitioner Family ==

== ENCOUNTER 2025-02-02 08:37 | Outpatient (RCR) | payer OTHER, SELFPAY ==
--- NOTE | 2024-12-31 11:51 | MHC.OT.EP ---
[address] [phone] Occupational Therapy Plan of Care Patient Name: Marlene Juan Date of Evaluation: 12/31/24 Diagnosis: Post concussion syndrome Pain Location: Reports chronic R UE pain (26 years) Headaches occasionally (although they are improving) Aggravating Factors: Headaches - bright lights, loud noises, over stimulation Alleviating Factors: Rest, dark room, 'brain breaks' Assessment: Pt is a 54 y/o female referred to OT for cognitive therapy. Pt has history of TBI in 2010, multiple subsequent concussions following, with most recent in Jul 2023 in a school setting. Also has history of PTSD and unspecified mental disorder. Marlene presents with persistent post-concussion symptoms affecting cognitive, emotional, and sensory function. Despite improvements in headache frequency, ongoing difficulties with attention, organization, word retrieval, and irritability impact daily life and work performance. Pt reports strained personal relationships due to difficulty regulating emotions. She also mentions struggling with hoarding and feeling a general sense of overwhelm with life stressors. Sensory sensitivities may further contribute to cognitive fatigue and stress. MOCA score 30/30, [place] PCS score 47. Pt would benefit from skilled OT to address noted barriers and assist with developing compensatory strategies for cognitive challenges, improving sensory tolerance, enhancing emotional regulation, and facilitating a structured return to daily and work-related tasks. Frequency and Duration: The patient will be seen 1-2/wk for 6 weeks Short Term Goals: 1) Implement at least 2 memory or organizational strategies (written reminders, task sequencing) to improve daily task management with 80% consistency. 2) Utilize attention-enhancing techniques (e.g., time blocking, minimizing distractions) to complete structured cognitive tasks for at least 15 minutes with minimal frustration. 3) Practice and demonstrate at least 2 self-regulation techniques (e.g., deep breathing, mindfulness) to manage irritability in real-life situations with 75% effectiveness. [place] Goals: 1) INDly use personalized organizational strategies (planners, reminders, checklists) to manage daily responsibilities with minimal therapist support. 2) Complete multi-step cognitive tasks requiring divided attention (e.g., scheduling appointments while managing a to-do list) for 30 minutes with reduced fatigue. 3) Patient will implement learned emotional regulation techniques to manage frustration and irritability improving self-reported emotional stability on the PSC scale Treatment Plan: Therapeutic Exercise Therapeutic Activity Home Exercise Program Neuro Re-ed Patient Education Desensitization/Sensory Re-ed ADL Training Other (see comments) Cognitive therapy, emotional regulation Electronically Signed By: Janet Shafer MS OTR/L Please Sign and return to therapist. Thank you once again for your referral.
--- NOTE | 2025-05-19 08:56 | MHC.OT.DC ---
[address] [phone] F: [phone] Occupational Therapy Discharge Note Patient Name: Marlene Salvage Provider: Emma Smith Diagnosis: Post concussion syndrome Date of Evaluation: 12/31/24 Date of Discharge: Last seen 02/02 Treatments to Date: 6 Cancellations to Date: 1 No Shows to Date: 2 Discharge Status: Improved Function Visit Non-compliance Discharge Summary: Marlene attended 6 OT tx sessions focused on cognitive rehab and organizational skills. She did benefit from visual restructuring of her calendar, appearing more regulated and organized some sessions, although did fluctuate with consistency. She also demonstrated improved confidence in managing her schedule and showed motivation to continue implementing learned strategies. Pt required min A at times to remain on task, disorganized thoughts though able to be redirected. Last scheduled session, pt reported obtaining a new job; she did not follow up with future appointments. At this time, pt is being discharged from OT services. Thank you for this referral. Electronically Signed By: Janet Shafer MS OTR/L Reviewed/agree with student documentation: Therapist: Please Sign and return to therapist, thank you for your referral.
== END 2025-05-19 08:57 | disposition home or self-care (01) ==
LOC: HO.OTS 08:37
PROVIDERS: Visit Provider Nurse Practitioner Family
DX: F07.81 Postconcussional syndrome (principal); F09 Unspecified mental disorder due to known physiological condition
CPT/HCPCS: 97112; 97166; 97530

== ENCOUNTER 2025-06-07 10:07 | Outpatient (AMB) | payer OTHER, SELFPAY ==
[2025-06-07 10:12] VITALS: BP 122/76; PULSE 83; O2SAT 97; BMI 25.4
--- NOTE | 2025-06-07 10:12 | MHC.OFFVIS ---
Vital Signs 06/07/25 10:12 Height 5 ft 2 in Weight 139 lb 2 oz BMI 25.4 BP 122/76 Blood Pressure Location Lt brachial Position Sitting Pulse 83 Pulse Source Pulse Oximeter Pulse Oximetry (%) 97 Oxygen Delivery Method Room Air Intake Visit Reasons: 6mnth follow up Intake Note: Patient presents 6 month follow up for migraines/cognitive. Allergies gabapentin (GABAPENTIN) Allergy (Unknown, Verified 06/07/25 10:14) UNKNOWN dogs, camels, horses, molds, g Allergy (Unknown, Uncoded 06/07/25 10:14) Difficulty Breathing Medication List - Last Reconciled 06/07/25 by Emma Smith, DEBBI bupropion HCl XL 300 mg PO QAM estradiol 1 patch topical 2XW loratadine 10 mg PO DAILY PRN magnesium oxide 400 mg PO BEDTIME 30 days progesterone micronized 100 mg PO QAM ubrogepant (Ubrelvy) 50 - 100 mg (0.5 - 1 x 100 mg) PO ONCE PRN 30 days valacyclovir 500 mg PO DAILY PRN [Ventolin HFA ] HPI Comments Details: 55-yr-old female presents for for postconcussive syndrome. She had another concussion in December. Continue sto have memory issues- recently called her boyfirend by another name. 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 she is working part-time is on extended orientation she has had difficulties learning the new computer system difficulty with learning information shared with her verbally and needs verbal information repeated difficulty with social cues Trying to identify work accommodations-but is worried that this position may not work out well due to her cognitive difficulties She is curious about brain injury induced autism- and wonders if we can help w/ this diagnosis She is wondering how she can apply for sunglasses States she needs sunglasses that can wrap around her glasses/face from oriental orthodox to oriental orthodox States she is unable to afford to buy these on her own, given from online vendors She has not been sleeping well especially since she just went through a recent break-up. takes her bupropion in the am, but may forget and take at 2pm. She is curious if there is anything we can offer to help this She finds the ubrelvy to be helpful when she takes it. 11/11/2024, previous HPI: Pt reports she has been having increased difficulty swallowing and burping, and is scheduled to undergo GI workup. Pt states her work comp case was closed, and has been cleared to return to work in a low stress environment. She has been working in [employer]. 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 Pt reports her headaches have been better over the last few months. May have occasional mild headache. Rarely has a migraine which may last about 1/2 a day. Has tried the Ubrelvy once- it has been helpful. She states her insomnia is worse. She is prone to ruminating thoughts. She does try sleep hygiene strategies, which do help, but not if her mind is racing. Notes that she does like listening to affirming sleep videos. Sometimes, getting out of bed and jogging in place can help to break the anxiety/rumination.. Has been using THC/indica gummies, 1/2-1 gummy can be helpful. She can still have cognitive difficulties. She has difficulties with word finding, speech pauses, saying the wrong thing, forgetfulness. These difficulties make it difficult for her in work and social settings. [facility] Medical History Mood disorder Post concussion syndrome Migraine TBI (traumatic brain injury) Mild asthma Menopause Palpitations Melanoma Crohn's disease Subclinical hypothyroidism Anemia Family History Mother Diabetes Social History Household Members: Children Household Members Other:: pt's 15 year old child Alcohol intake: current Alcohol intake frequency: holidays/special occasions only Patient Tobacco Use Status: Former Tobacco user Tobacco use type: Cigarette Substance Use Type: Marijuana Physical Exam Vital Signs: Last Vital Signs Pulse 83 06/07/25 10:12 BP 122/76 06/07/25 10:12 Pulse Ox 97 06/07/25 10:12 Oxygen Delivery Method Room Air 06/07/25 10:12 BMI result Body Mass Index 25.4 Const General: cooperative and no acute distress Resp Effort & Inspection: normal respiratory effort and able to speak in complete sentences Neuro Other: Alert and oriented x3 with intermittent STM lapses and word-finding difficulties Requires a slower pace of conversation and reiteration of certain points Photophobic Psych Other: At times teary, states she has overwhelmed and dysregulated Appearance: grossly normal Mental Status: mental status grossly normal Speech and movement: Clear speech present Attitude: cooperative Assessment & Plan Assessment & Plan (1) Postconcussion syndrome: Comment: With temporal relation to work related accident on 07/23/2023, in which she was accidentally pushed into a wall likely causing a whiplash injury. Code(s): F07.81 - Postconcussional syndrome Category: Medical (2) Migraine without aura: Comment: Exacerbated by work related injury 07/23/2023. Has had a few migraines with aura symptoms. Code(s): G43.009 - Migraine without aura, not intractable, without status migrainosus Category: Medical Qualifiers: Intractability: not intractable Status migrainosus presence: without status migrainosus Qualified Code(s): G43.009 - Migraine without aura, not intractable, without status migrainosus (3) Cognitive dysfunction: Comment: With temporal relation to work related accident on 07/23/2023, in which she was accidentally pushed into a wall likely causing a whiplash injury. Code(s): F09 - Unspecified mental disorder due to known physiological condition Category: Medical Plan ? For overall post concussive management: Continue to try to optimize good self-care, including but not limited to maintaining a healthy diet, adequate fluid intake, adequate sleep, and engaging in regular physical activity. Track headaches. Continue paced physical activity. For photophobia: Advised to discuss her insurance coverage of additional glasses with her eye care clinic. Patient encouraged to avoid wearing sunglasses inside, and that if the inside lighting is bothersome, she may benefit from using a pair of FL-41 blue light filtering Ivana tinted glasses, which can be worn over her prescription glasses. 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 We will again refer patient for OT postconcussive cognitive dysfunction eval and treat. Explained to patient that evaluating for in diagnosing adult onset autism is beyond the scope of my clinical specialty. Advised to discuss this with her current psychiatrist, however she states that her psychiatrist told her to talk to us. Thus, will refer patient for neuro psychiatric evaluation. Continue bupropion XL 300 mg daily in the morning- advised to take this upon arising, as taking it later in the day may interfere with sleep onset. Re-trial amitriptyline 10 mg daily at 8-9 p.m., as patient previously tolerated this well. This may help sleep, which in turn may reduce the severity of some of her other symptoms. Previous cognitive tx trials- did not tolerate methylphenidate. tried Adderrall- unsure of effect. Amantadine in 2011 was very helpful for cognitive symptoms, tried in 2022 with questionable effect. Future consideration: Revisiting neuro stimulant. ? For post concussive acute headache treatment: Carry ibuprofen and Ubrogepant with her at all times. Continue ibuprofen 400-800 mg p.r.n. Continue Ubrogepant (Ubrelvy) 100mg tab, 1/2 - 1 tab (50-100mg) at onset of headache, may repeat in 2 hours. Max of 2 tabs (200mg) per 24 hours. May adjunct with OTC Tylenol 650mg q 4 hours, Ibuprofen 600mg q 6 hours, or Naproxen 440mg q 12 hrs prn. Previous acute migraine medication trials: Sumatriptan- not tolerated. Rizatriptan-ineffective.. Acute migraine medication contraindications: Triptans d/t current episodes of chest pain. Future considerations: Retrying p.r.n. triptan. Or trying Nurtec or Ubrelvy p.r.n. ? For post concussive headache prevention medication: Riboflavin 400mg qam Magnesium 400mg qhs Resume amitriptyline 10 mg daily at bedtime, as above Previous migraine prevention medication trials: Amitriptyline use for sleep and was previously tolerated well. Gabapentin, was not tolerated. Migraine prevention medication contraindications: Beta-blockers due to asthma diagnosis. Future considerations: Nortriptyline, as this can have less of a sedating effect. ? ? Will follow-up upon review of above and patient to follow-up in clinic in 6 months or sooner prn. Orders: Orders OT Evaluation and Treatment Today F07.81 - Postconcussional syndrome, F09 - Unspecified mental disorder due to known physiological condition Referrals Neuropsychiatry Referral F07.81 - Postconcussional syndrome, F09 - Unspecified mental disorder due to known physiological condition, G31.84 - Mild cognitive impairment of uncertain or unknown etiology, G43.009 - Migraine without aura, not intractable, without status migrainosus Medications: New amitriptyline 10 mg PO BEDTIME 30 tabs 3RF 30 days Coding Level of Care Code Est Pt Level 4 (93122) Complex EM visit Add On G2211 Diagnoses Postconcussion syndrome F07.81 Migraine without aura and without status migrainosus, not intractable G43.009 Intractability: not intractable Status migrainosus presence: without status migrainosus Cognitive dysfunction F09 Time Spent (min) 40 Comment 40+ spent directly patient, and additional 10 minutes in chart review and documentation
--- OUTSIDE RECORDS SUMMARY | 2025-06-07 11:02 | XMS_ITS | Encounter Summary ---
Author Organization [facility] Address [address] [place] [address] Phone Care Team Providers Care Glycerin Supervisor Name Role Phone MariYudith GENERAL REPAIRER Unavailable pwit Greyson Martinez MD Unavailable Syd Og DO Unavailable Joellen Carlos MD Unavailable Mark Adams MD Unavailable Shefali Nino SHELLS INSPECTOR Unavailable [phone] Berta Duarte MD Unavailable Bennett Howard MD Unavailable [phone] Lisa Valadez MD Unavailable Roxi Santo SHELLS INSPECTOR Unavailable Dulce Maria Segundo MD Primary Care Provider Dulce Maria Segundo MD Unavailable Daniela Jimenez [facility] Unavailable Fiordaliza Tay Unavailable pedro pablo Fiordaliza Tay Unavailable pedro pablo Fiordaliza Tay Unavailable pedro pablo Danny Ramsey VITICULTURIST Unavailable Encounter Details Date Type Department Care Team (Late st Contact Info) Description 09/10/2021 Procedure Pass Non-Invasive Cardiology [address] [place] [address] Social History Tobacco Use Types Packs/Day Years Used Date Smoking Tobacco: Former Cigarettes Q uit: 03/11/1990 Smokeless Tobacco: Never Comments:couple a month smok er quit 30 years ago Alcohol Use Standard Drinks/Week Comments Yes 0 (1 standard drink = 0.6 oz pur e alcohol) 3 drinks a month Comments No Sex and Gender Information Value Date Recorded Sex Assigned at Female 06/03/2020 1:16 PM EDT Legal Sex Female 9:35 PM EDT Gender Identity Female 06/03/2020 1:16 PM EDT Sexual Orientation Not on file documented as of this encounter Plan of Treatment Upcoming Encounters Date Type Department Care Team (Late Contact Info) Description 04/13/2025 Procedure Pass [facility] [address] [place] [address] 06/28/2025 3:40 PM EDT Nurse Only [facility] [address] [address] Dulce Maria Segundo MD [address] [place] [address] 07/02/2025 Procedure Pass [facility] Admitting Dept Virtual Department [address] [place] [address] 07/02/2025 9:30 AM EDT Hospital Encounter [facility] Admitting [facility] Virtual Department [address] [place] [address] Danny Lynne MD [address] [place] [address] 07/02/2025 9:30 AM EDT - 07/02/2025 10:00 AM EDT Surgery [facility]oscopy Admitting Dept Virtual Department [address] [place] [address] Danny Lynne MD [address] [place] [address] [email or web address] COLONOSCOPY 07/14/2025 11:30 AM EDT Social Work [facility] [address] [place] [phone] Unknown, Unknown, Danny Berry, VITICULTURIST [address], [address] 08/04/2025 9:20 AM EDT Office Visit [facility] [address] [address] Dulce Maria Segundo MD [address] [place] [address] 08/11/2025 10:00 AM EDT Social Work [facility] [address] [place] [phone] Danny Ramsey, VITICULTURIST [address], [address] [email or web address] 08/17/2025 9:00 AM EDT Office Visit [facility] [address], [address] [place] [address] Syd Og DO [address] [address] 09/02/2025 3:00 PM EST Social Work [facility] [address] [place] [phone] Danny Ramsey, VITICULTURIST [address], [address] 09/15/2025 10:00 AM EST Office Visit [facility] [address] [facility] [address] [place] [address] Dulce Maria Segundo MD [address] [facility] [address] [place] [address] [email or web address] 11/19/2025 10:45 AM EST Appointment [facility] [address] [place] [address] Dulce Maria Segundo MD [address] [facility] [address] [place] [address] [email or web address] 12/24/2025 11:00 AM EST Office Visit [facility] [address], [address] [place] [address] Rikki Flores MD [address] [place] [address] [email or web address] Scheduled Procedures Name Priority Associated Diagnoses Date/Ti me COLONOSCOPY Crohn's disease of rectum with rectal bleeding 07/02/2025 9:30 AM EDT ESOPHAGOGASTRODUODENOSCOPY Crohn's disease of rectum with rectal bleeding 07/02/2025 9:30 AM EDT documented as of this encounter Visit Diagnoses Not on filedocumented in this encounter Additional Health Concerns Infection Onset Date Last Indicated Resolved Time CoV-Exposed Comment:Recent close contact documented in the COVID-19 PCR/PRO order 09/22/2021 09/26/2021 10/07/2021 1:[address] CoV-Risk Comment:Per Ambulatory Triage Form 09/26/2021 09/27/202110/07 1:24 AM EST CoV-Risk 10/07/2021 10/08/2021 10/18/2021 1:22 AM EST CoV-Exposed Comment:Recent close contact documented in the COVID-19 PCR/PRO order 10/09/2021 10/11/2021 10/24/2021 1:[address] CoV-Risk Comment:Per Ambulatory Triage Form 02/19/2022 02/20/202202/21 1:09 PM EDT CoV-Exposed Comment:Positive COVID-19 02/19/2022 02/19/2022 02/21/2022 1:0 9 PM EDT COVID-19 02/20/2022 02/20/2022 03/13/2022 1:22 AM EDT CoV-Risk 02/25/2023 02/25/2023 03/08/2023 1:23 AM EDT COVID-19 10/14/2023 10/14/2023 11/04/2023 1:21 AM EST CDiff-Risk 08/22/2024 12/25/2024 08/29/2024 1:22 AM EST CDiff-Risk 12/25/2024 12/25/2024 12/25/2024 12:2 5 PM EST documented as of this encounter Care Teams Glycerin Supervisor Relationship Specialty Start Date End Date Dulce Maria Segundo MD 15 [facility] [address] [place] [address] [email or web address] PCP - General Family Medicine 05/09/20 Yudith Guerra, JENNY [address] [facility] [address] [place] [address] [email or web address] Historical LMR Provider 08/05/1710/28/21 Greyson Martinez MD [address] [place] [address], [facility] [address] [place] [address] [email or web address] Historical LMR Provider 08/05/17 10/28/21 Syd Og DO [address] [facility], [facility] [address] [place] [address] Historical LMR Provider 08/05/17 Joellen Carlos MD [address] [place] [address] [email or web address] Historical LMR Provider 08/05/17 10/28/21 Mark Adams MD [address] [address] [email or web address] Historical LMR Provider 08/05/17 10/28/21 Shefali Nino NP [address] [place] [address] Historical LMR Provider 08/05/17 2 Berta Duarte MD [address] [place] [address] [email or web address] Historical LMR Provider 08/05/17 2 Bennett Howard MD [address] [place] [address] Historical LMR Provider 08/05/17 2 Lisa Valadez MD -[address] [place] [address] [email or web address] Historical LMR Provider 08/05/17 10/28/21 Roxi Santo NP [address] [place] [address] Historical LMR Provider 08/05/17 2 Dulce Maria Segundo MD [address] [address] [email or web address] Insurance Assigned Provider 07/02/20 06/29/23 ShawneeDaniela ac, [address] [address] [email or web address] Social Work 08/14/22 Adan Denny [address] [address] [email or web address] Community Gasoline Catalyst Operator 01/16/24 01/16/24 Adan Denny [address] [address] [email or web address] [facility] Community Gasoline Catalyst Operator 02/10/24 02/10/24 Adan Denny [address] [address] [email or web address] [facility] Community Gasoline Catalyst Operator 06/16/24 06/17/24 Danny Ramsey, VITICULTURIST [address] [phone] [email or web address] Business Excellence Leader Licensed Clinical Business Excellence Leader 02/03/25 documented as of this encounter Additional Source Comments The information contained in this document represents components of the legal health record. It is not the complete legal health record.[facility]
== END 2025-06-07 11:32 | disposition home or self-care (01) ==
LOC: HO.HSMS 10:08
PROVIDERS: PCP Family Medicine; Visit Provider Nurse Practitioner Family
DX: G43.009 Migraine without aura, not intractable, without status migrainosus (principal); R41.89 Other symptoms and signs involving cognitive functions and awareness; F07.81 Postconcussional syndrome
CPT/HCPCS: 99214; G2211